=== PATIENT | female | born 1985 | race Caucasian/White ===

== ENCOUNTER 2017-07-02 04:18 | Emergency (ER) | payer OTHER ==
[~2017-07-02] VITALS: Ht 157.5 cm; Wt 52.2 kg
[~2017-07-02 04:18] MED LIST: ATIVAN1 MG PO; CLONAZEPAM 0.50.5 M1 PO; DEPAKOTE 250MG250 MG; HYDROCODON-ACE1 EAC8 PO; HYDROCODONE-AP1 EAC6 PO; HYDROXYZINE HCL25 M1; IBUPROFEN 800800 M1 PO; KEFLEX500 MG PO; METROGEL-VAGINA70 GM VG; MUPIROCIN22 GM TOP; NOHOMEMEDICATIONS; PENICILLIN VK250 MG PO; PRAZOSIN 1 MG CA1 M1; PRAZOSIN HCL1 MG PO; PROZAC40 MG PO; VISTARIL 25 MG25 M1 PO; ZOFRAN ODT4 MG PO
[2017-07-02 04:29] VITALS: BP 123/61
== END 2017-07-02 04:38 | disposition home or self-care (01) ==
LOC: M.ERS 04:18
DX: S01.511A Laceration without foreign body of lip, initial encounter (principal); J45.909 Unspecified asthma, uncomplicated; F43.10 Post-traumatic stress disorder, unspecified; F17.210 Nicotine dependence, cigarettes, uncomplicated; Z90.710 Acquired absence of both cervix and uterus; Z90.49 Acquired absence of other specified parts of digestive tract; Z85.42 Personal history of malignant neoplasm of other parts of uterus; Y04.0XXA Assault by unarmed brawl or fight, initial encounter; Y93.89 Activity, other specified; Y92.89 Other specified places as the place of occurrence of the external cause; Y99.8 Other external cause status

== ENCOUNTER 2017-07-04 01:26 | Emergency (ER) | payer OTHER ==
[~2017-07-04] VITALS: Ht 157.5 cm; Wt 52.2 kg
[2017-07-04 01:31] VITALS: BP 124/68
[2017-07-04] MEDS ORDERED: KEFLEX500 M1 PO (01:54)
[2017-07-04] MEDS ORDERED: BACTRIM DS TAB1 EACH PO (01:54)
== END 2017-07-04 02:00 | disposition home or self-care (01) ==
LOC: M.ERS 01:26
DX: S01.501D Unspecified open wound of lip, subsequent encounter (principal); L08.9 Local infection of the skin and subcutaneous tissue, unspecified; J45.909 Unspecified asthma, uncomplicated; F43.10 Post-traumatic stress disorder, unspecified; Z90.710 Acquired absence of both cervix and uterus; Z90.49 Acquired absence of other specified parts of digestive tract; Z85.42 Personal history of malignant neoplasm of other parts of uterus; Y08.89XD Assault by other specified means, subsequent encounter

== ENCOUNTER 2017-12-03 19:14 | Emergency (ER) | payer OTHER ==
[~2017-12-03] VITALS: Ht 157.5 cm; Wt 59.0 kg
[~2017-12-03 19:14] MED LIST changes: +BACTRIM DS TAB1 EACH PO; +KEFLEX500 M1 PO
[2017-12-03] MEDS ORDERED: BACTRIM DS TAB1 EACH PO (19:35)
[2017-12-03] MEDS ORDERED: FLONASE 0.05%50 MCG NASAL (19:35)
[2017-12-03 19:45] VITALS: BP 160/79
== END 2017-12-03 19:50 | disposition home or self-care (01) ==
LOC: M.ERS 19:14
DX: J32.0 Chronic maxillary sinusitis (principal); Z90.49 Acquired absence of other specified parts of digestive tract; Z90.710 Acquired absence of both cervix and uterus

== ENCOUNTER 2018-08-28 14:09 | Emergency (ER) | payer OTHER ==
[~2018-08-28] VITALS: Ht 154.9 cm; Wt 70.3 kg
[~2018-08-28 14:09] MED LIST changes: +FLONASE 0.05%50 MCG NASAL
[2018-08-28] MEDS ORDERED: ADIPEX-P37.5 MG PO (14:16)
[2018-08-28] MEDS ORDERED: ULTRAM 50MG TAB50 MG PO (14:22)
[2018-08-28] MEDS ORDERED: PENICILLIN VK500 M1 PO (14:22)
[2018-08-28 14:25] VITALS: BP 128/80
== END 2018-08-28 14:26 | disposition home or self-care (01) ==
LOC: M.ERS 14:09
DX: K13.79 Other lesions of oral mucosa (principal); J45.909 Unspecified asthma, uncomplicated; Z85.41 Personal history of malignant neoplasm of cervix uteri; Z90.710 Acquired absence of both cervix and uterus; Z90.49 Acquired absence of other specified parts of digestive tract